=== PATIENT | female | born 1955 | race Caucasian/White ===

== ENCOUNTER 2017-02-06 16:22 | Outpatient (CLI) | payer OTHER ==
[2017-02-06 15:00] LABS: EOSINOPHILS # (AUTO) 0.1 10^3/uL (0.0-0.7); EOSINOPHILS % (AUTO) 2.3 %; HCT - HEMATOCRIT 43.3 % (37.0-47.0); HGB - HEMOGLOBIN 14.7 g/dL (12.0-16.0); LYMPHOCYTES % (AUTO) 43.3 %; MEAN CORPUSCULAR HGB CONC 33.9 g/dL (32.0-36.0); MEAN CORPUSCULAR VOLUME 91.5 fL (81.0-99.0); MEAN PLATELET VOLUME 8.7 fL (7.9-10.8); MONOCYTES # (AUTO) 0.4 10^3/uL (0.0-1.0); MONOCYTES % (AUTO) 8.4 %; NEUTROPHILS # (AUTO) 2.1 10^3/uL (1.5-6.6); NUCLEATED RED BLOOD CELLS AUTO 0.1 /100WBC; RED BLOOD COUNT 4.74 10^6/uL (4.20-5.40); UNCORRECTED WHITE BLOOD COUNT 4.7 x10^3/uL; WHITE BLOOD COUNT 4.7 x10^3/uL (4.8-10.8)
[2017-02-06 15:08] LABS: ALBUMIN/GLOBULIN RATIO 1.4 (1.0-2.2); BILIRUBIN,TOTAL 0.4 mg/dL (0.2-1.0); BUN - BLOOD UREA NITROGEN 20 mg/dL (6-20); CALCIUM 9.1 mg/dL (8.5-10.3); CARBON DIOXIDE - CO2 27 mmol/L (21-32); CHLORIDE 101 mmol/L (101-111); CHOL/HDL RATIO 3.3 (<4.4); CHOLESTEROL 238 mg/dL; CREATININE 0.8 mg/dL (0.4-1.0); GFR - MDRD 73 (>89); GLUCOSE 95 mg/dL (70-100); HDL CHOLESTEROL 72 mg/dL; LDL/HDL RATIO 2.1 (<4.4); POTASSIUM 3.9 mmol/L (3.5-5.0); SODIUM 135 mmol/L (135-145); TOTAL PROTEIN 7.4 g/dL (6.7-8.2); TRIGLYCERIDES 82 mg/dL; VLDL CHOLESTEROL 16 mg/dL
== END 2017-02-06 16:23 | disposition home or self-care (01) ==
LOC: LAB.R 16:22
PROVIDERS: ATTEND Nurse Practitioner Primary Care
DX: E55.9 Vitamin D deficiency, unspecified (principal); N30.10 Interstitial cystitis (chronic) without hematuria; M81.0 Age-related osteoporosis without current pathological fracture; K21.9 Gastro-esophageal reflux disease without esophagitis; Z79.899 Other long term (current) drug therapy; E78.5 Hyperlipidemia, unspecified
CPT/HCPCS: 80053; 80061; 82306; 85025

== ENCOUNTER 2017-02-11 14:20 | Outpatient (CLI) | payer OTHER | END 2017-02-11 14:21 | disposition home or self-care (01) | LOC: SC 14:20 | PROVIDERS: ATTEND Internal Medicine Pulmonary Disease | DX: G47.30 Sleep apnea, unspecified (principal); G47.10 Hypersomnia, unspecified; R06.83 Snoring; E66.9 Obesity, unspecified; Z68.28 Body mass index [BMI] 28.0-28.9, adult | CPT/HCPCS: 99203; 99212 ==

== ENCOUNTER 2017-03-05 10:07 | Outpatient (CLI) | payer OTHER ==
--- NOTE | 2017-03-07 16:31 | Mammography Report ---
DATE OF SERVICE: 03/05/2017 DIGITAL SCREENING MAMMOGRAM: 03/05/2017. CLINICAL INDICATION: A 61-year-old with family history of breast cancer for screening. COMPARISON: 06/2014, 04/2012, 04/2011, 03/2010. TECHNIQUE: Routine CC and MLO projections were obtained of the breasts. FINDING: The breasts again demonstrate heterogeneously dense fibroglandular parenchyma bilaterally. Coarse and punctate, typically benign calcifications are present. No suspicious masses, clustered microcalcifications, or regions of architectural distortion are identified. IMPRESSION: Benign findings. RECOMMENDATIONS: Routine annual screening unless otherwise clinically indicated. BIRADS category 2 benign findings. STANDARD QUALIFYING STATEMENTS 1. This examination was reviewed with the aid of Computed-Aided Detection (CAD). 2. A negative or benign imaging report should not delay biopsy if clinically suspicious findings are present. Consider surgical consultation if warranted. More than 5% of cancers are not identified by imaging. 3. Dense breasts may obscure an underlying neoplasm. TD: 03/06/2017 18:51
== END 2017-03-05 10:08 | disposition home or self-care (01) ==
LOC: DI 10:07
PROVIDERS: ATTEND Nurse Practitioner Primary Care
DX: Z12.31 Encounter for screening mammogram for malignant neoplasm of breast (principal); Z80.3 Family history of malignant neoplasm of breast
CPT/HCPCS: 77067

== ENCOUNTER 2017-03-13 18:06 | Outpatient (CLI) | payer OTHER ==
--- NOTE | 2017-03-15 08:53 | XRAY Report ---
DATE OF SERVICE: 03/13/2017 BILATERAL HIPS: 03/13/2017 COMPARISON STUDY: Sacrum and coccyx 03/13/2017. INDICATION: Mostly right hip pain after fall. TECHNIQUE: One frog leg view of each hip. Frontal pelvis and hips. FINDINGS: Normal alignment. No evidence of acute fracture. There is a minimal enthesophyte of the right greater trochanter at the insertion of the gluteal tendons. IMPRESSION: Right calcific gluteal tendinopathy. Otherwise, negative hips. TD: 03/14/2017 18:33 TAVO
--- NOTE | 2017-03-15 08:53 | XRAY Report ---
DATE OF SERVICE: 03/13/2017 CERVICAL SPINE: 03/13/2017 COMPARISON: Cervical spine 04/23/2008. INDICATION: Fall on 02/22/2017 down the stairs. TECHNIQUE: Four views of the cervical spine. FINDINGS: There is moderate disk space narrowing at C5-C6 and C6-C7 with small to moderate anterior osteophytes at those levels. Alignment is normal. There is no evidence of acute fracture. Prevertebral soft tissues appear unremarkable. The lateral masses are symmetric. IMPRESSION: Moderate lower cervical spondylosis slightly progressed from the prior exam. TD: 03/14/2017 18:34 MTDD
--- NOTE | 2017-03-15 08:53 | XRAY Report ---
DATE OF SERVICE: 03/13/2017 SACRUM AND COCCYX RADIOGRAPHS: 03/13/2017 COMPARISON STUDY: Lumbar spine 01/10/2015. INDICATION: Buttock pain. TECHNIQUE: Three views of the sacrum. FINDINGS: Normal alignment. No evidence of acute fracture. No erosive findings. Soft tissues appear unremarkable. IMPRESSION: Negative sacrum and coccyx. TD: 03/14/2017 18:31 [facility]
== END 2017-03-13 18:07 | disposition home or self-care (01) ==
LOC: DI 18:06
PROVIDERS: ATTEND Nurse Practitioner Primary Care
DX: M43.02 Spondylolysis, cervical region (principal); M67.853 Other specified disorders of tendon, right hip
CPT/HCPCS: 72040; 72220; 73521

== ENCOUNTER 2017-04-18 16:51 | Outpatient (CLI) | payer OTHER ==
--- NOTE | 2017-04-19 12:00 | MRI Report ---
EXAM: MRI CERVICAL SPINE WITHOUT CONTRAST EXAM DATE: 04/18/2017 06:17 PM. CLINICAL HISTORY: Chronic neck pain with bilateral arm pain, numbness and tingling. COMPARISONS: Cervical spine 3 views 03/13/2017. TECHNIQUE: Multiplanar, multisequence T1-weighted and fluid-sensitive sequences of the cervical spine without contrast. Other: None. FINDINGS: Neurologic Structures: The visualized posterior fossa structures are unremarkable. No signal abnormal ity in the visualized spinal cord. Alignment: No scoliosis or spondylolisthesis. Bone Marrow: No gross fractures or bone lesions. No marrow edema. Interspace Levels/Facets: C1-C2: Unremarkable. C2-C3: Severe right facet hypertrophic arthropathy. Mild right foraminal stenosis from facet degenera tive hypertrophy. C3-C4: Right facet joint ankylosis. Hypoplasia disk interspace. Negative for spinal canal stenosis or foraminal stenosis. C4-C5: Mild disk degeneration. Moderate facet joint arthrosis. The neural foramina are negative for s tenosis. Posterior 2 mm disk protrusion/osteophyte complex. C5-C6: Mild ligamentum flavum thickening. Severe disk degeneration. Mild left foraminal stenosis from Luschka joint hypertrophic spurring. Moderate to severe right foraminal stenosis from Luschka joint hypertrophic spurring. C6-C7: Severe disk degeneration. Mild left foraminal stenosis from Luschka joint hypertrophic spurrin g. C7-T1: Mild left facet joint arthrosis. The intervertebral foramina are negative for stenosis. Musculature: Normal. No edema or fatty atrophy. Other: The paravertebral and prevertebral soft tissues are normal. IMPRESSION: 1. The spinal cord from the cervical medullary junction to T2 is negative for signal abnormality. 2. Mild central spinal canal stenosis C5-C6 interspace from posterior 2 mm disk protrusion/osteophyte complex and ligamentum flavum thickening. 3. Moderate to severe right and mild left C5-C6 foraminal stenosis from Luschka joint hypertrophic sp urring. [facility] Referring Provider Line: [phone] SITE ID: [id number]
== END 2017-04-18 16:52 | disposition home or self-care (01) ==
LOC: DI 16:51
PROVIDERS: ATTEND Nurse Practitioner Primary Care
DX: M47.892 Other spondylosis, cervical region (principal); M50.221 Other cervical disc displacement at C4-C5 level; M50.321 Other cervical disc degeneration at C4-C5 level
CPT/HCPCS: 72141

== ENCOUNTER 2017-05-03 11:39 | Outpatient (CLI) | payer OTHER ==
--- NOTE | 2017-05-03 15:52 | XRAY Report ---
REVISED: THIS REPORT WAS ORIGINALLY SIGNED ON 05/03/2017 @ 1602. NO CHANGES WERE MADE TO THE REPORT. THE ORIGINAL [facility] REQUISITION WAS REPRINTED ON . FOUR VIEW RIGHT KNEE: 05/03/2017 CLINICAL INDICATION: Pain. FINDINGS: AP, lateral, bilateral oblique views of the right knee demonstrate no evidence of fracture or dislocation. No effusion is present. No foreign body is seen in the soft tissues. IMPRESSION: NORMAL RIGHT KNEE. TD: 05/03/2017 15:49 MTDD
--- NOTE | 2017-05-03 15:52 | XRAY Report ---
THREE VIEW RIGHT ANKLE: 05/03/2017 CLINICAL INDICATION: Pain. FINDINGS: AP, lateral, oblique views of the right ankle demonstrate no evidence of fracture or dislocation. No effusion is present. No foreign body is seen. IMPRESSION: NORMAL RIGHT ANKLE. TD: 05/03/2017 15:50
== END 2017-05-03 11:40 | disposition home or self-care (01) ==
LOC: DI 11:39
PROVIDERS: ATTEND Nurse Practitioner Primary Care
DX: M25.561 Pain in right knee (principal); M25.571 Pain in right ankle and joints of right foot

== ENCOUNTER 2017-05-06 12:11 | Outpatient (CLI) | payer OTHER ==
--- NOTE | 2017-05-08 15:14 | XRAY Report ---
REVISED: THIS REPORT WAS ORIGINALLY SIGNED ON 05/03/2017 @ 1602. NO CHANGES WERE MADE TO THE REPORT. THE ORIGINAL [facility] REQUISITION WAS REPRINTED ON . FOUR VIEW RIGHT KNEE: 05/03/2017 CLINICAL INDICATION: Pain. FINDINGS: AP, lateral, bilateral oblique views of the right knee demonstrate no evidence of fracture or dislocation. No effusion is present. No foreign body is seen in the soft tissues. IMPRESSION: NORMAL RIGHT KNEE. TD: 05/03/2017 15:49 Wealth Management Manager: Reading Radiologist: Jose Shay MD Releasing Radiologist: Jose Shay MD Released Date Time: 05/06/17 1240 cc: ROSARIO Vivar ADDENDUM ADDENDUM TO FOUR VIEW RIGHT KNEE OF 05/03/2017 ADDENDUM: The patient returned for standing views on 05/06/2017. Again, the joint spaces are preserved. No effusion is evident. There has been no significant interval change. END OF ADDENDUM Addendum Wealth Management Manager: PAIGE Addendum Reading Radiologist: Jose Shay MD Addendum Releasing Radiologist: Jose Shay MD Addendum Released Date Time: 05/07/17 1143 MTDD
--- NOTE | 2017-05-08 15:15 | XRAY Report ---
REVISED: THIS REPORT WAS ORIGINALLY SIGNED ON 05/03/2017 @ 1602. NO CHANGES WERE MADE TO THE REPORT. THE ORIGINAL [facility] REQUISITION WAS REPRINTED ON . FOUR VIEW RIGHT KNEE: 05/03/2017 CLINICAL INDICATION: Pain. FINDINGS: AP, lateral, bilateral oblique views of the right knee demonstrate no evidence of fracture or dislocation. No effusion is present. No foreign body is seen in the soft tissues. IMPRESSION: NORMAL RIGHT KNEE. TD: 05/03/2017 15:49 Associate Financial Advisor: Reading Radiologist: Jose Shay MD Releasing Radiologist: Jose Shay MD Released Date Time: 05/06/17 1240 cc: ROSARIO Vivar ADDENDUM ADDENDUM TO FOUR VIEW RIGHT KNEE OF 05/03/2017 ADDENDUM: The patient returned for standing views on 05/06/2017. Again, the joint spaces are preserved. No effusion is evident. There has been no significant interval change. END OF ADDENDUM Addendum Associate Financial Advisor: PAIGE Addendum Reading Radiologist: Jose Shay MD Addendum Releasing Radiologist: Jose Shay MD Addendum Released Date Time: 05/07/17 1143 MTDD
== END 2017-05-06 12:12 | disposition home or self-care (01) ==
LOC: DI 12:11
PROVIDERS: ATTEND Nurse Practitioner Primary Care
DX: M25.561 Pain in right knee (principal)

== ENCOUNTER 2017-05-30 12:26 | Outpatient (CLI) | payer OTHER ==
--- NOTE | 2017-05-30 16:19 | MRI Report ---
EXAM: RIGHT ANKLE/HINDFOOT MRI WITHOUT CONTRAST EXAM DATE: 05/30/2017 01:38 PM. CLINICAL HISTORY: Right ankle pain for 4 months. Anterior and lateral ankle. Fell in October 2016. COMPARISON: None. TECHNIQUE: Multiplanar, multisequence T1-weighted and fluid-sensitive sequences of the ankle/hindfoot without contrast. Other: None. FINDINGS: Bones: There is a small cyst in the superomedial talar dome consistent with an osteochondral injury. There are no visible fractures. Articular Cartilage: There is focal thinning of the hyaline cartilage overlying the superomedial hattie r dome. Ligaments: The tibiofibular ligaments are intact. There is an old partial-thickness tear of the anter ior talofibular and calcaneofibular ligaments. There is thickening and decreased T1 and T2 signal in the superficial component of the deltoid ligament consistent with a prior partial-thickness tear. The re is a full-thickness tear of the spring ligament, with synovial fluid and joint capsule herniating inferiorly, between anterior and posterior intact components, coronal image 14. Anterior Tendons: The tibialis anterior, extensor hallucis longus, and extensor digitorum longus tend ons are unremarkable. Medial Tendons: The tibialis posterior, flexor digitorum longus, and flexor hallucis longus tendons a re unremarkable. Lateral Tendons: The peroneus brevis and longus are unremarkable. Achilles Tendon: Partial-thickness tear of the right side of the Achilles tendon. The tendon does not appear significantly thickened to suggest tendinosis. Musculature: No edema or fatty atrophy. Other: No effusions. The contents of the sinus tarsi and tarsal tunnel are unremarkable. No plantar f asciitis. The subcutaneous tissues are unremarkable. IMPRESSION: 1. Partial-thickness tear of the anterior talofibular and calcaneofibular ligaments with an osteochon dral injury of the superomedial talar dome. 2. Partial-thickness tear of the lateral aspect of the Achilles tendon. 3. Full-thickness tear of the spring ligament, and old partial-thickness tear of the superficial bund le of the medial collateral ligament. [facility] MUSCULOSKELETAL RADIOLOGY SECTION Referring Provider Line: [phone] SITE ID: [id number]
== END 2017-05-30 12:27 | disposition home or self-care (01) ==
LOC: DI 12:26
PROVIDERS: ATTEND Student in an Organized Health Care Education/Training Program
DX: S93.491A Sprain of other ligament of right ankle, initial encounter (principal); S93.411A Sprain of calcaneofibular ligament of right ankle, initial encounter; S86.011A Strain of right Achilles tendon, initial encounter; M89.8X7 Other specified disorders of bone, ankle and foot; S93.691A Other sprain of right foot, initial encounter

== ENCOUNTER 2017-06-18 09:35 | Outpatient (CLI) | payer OTHER ==
--- NOTE | 2017-06-18 11:46 | MRI Report ---
EXAM: RIGHT KNEE MRI WITHOUT CONTRAST EXAM DATE: 06/18/2017 10:14 AM. CLINICAL HISTORY: Right knee joint pain after fall down stairs in October 2016. COMPARISON: None. TECHNIQUE: Multiplanar, multisequence T1-weighted and fluid-sensitive sequences of the knee without c ontrast. Other: None. FINDINGS: Bones: No fractures. There is reactive periarticular marrow edema in the patella. Articular Cartilage: The patellofemoral and lateral compartment articular cartilage is intact. There is moderate thinning and surface irregularity of the medial compartment articular cartilage. Medial Meniscus: The medial meniscus is intact. Lateral Meniscus: The lateral meniscus is intact. Cruciate Ligaments: The anterior and posterior cruciate ligaments are intact. Collateral Ligaments: The medial collateral and lateral collateral ligamentous structures are intact. Tendons: The quadriceps, patellar, semimembranosus, and popliteus tendons are unremarkable. Musculature: No edema or fatty atrophy. Other: No effusion. No popliteal cyst. No loose bodies. The medial and lateral retinacula are intact . Prepatellar subcutaneous edema is present. IMPRESSION: 1. 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 [facility] MUSCULOSKELETAL RADIOLOGY SECTION Referring Provider Line: [phone] SITE ID: [id number]
--- NOTE | 2017-06-18 14:45 | MRI Report ---
EXAM: MRI LUMBAR SPINE WITHOUT CONTRAST EXAM DATE: 06/18/2017 10:38 AM. CLINICAL HISTORY: Right lower extremity radiculopathy. Previous fall in October 2016. COMPARISON: Lumbar spine radiography from 01/10/2015. TECHNIQUE: Multiplanar, multisequence T1-weighted and fluid-sensitive sequences of the lumbar spine f rom T12 to S1 without contrast. Other: None. FINDINGS: Spinal Cord: The conus terminates at L1-L2. The conus medullaris and cauda equina are unremarkable. Alignment: Mild levoconvex scoliosis. Bone Marrow: Five ioi-yiu-kidsecd lumbar vertebral bodies are assumed. Minimal marrow edema at the le ft L5 superior and inferior facets and pars interarticularis. Minimal marrow edema at the left S1 sup erior facet. Mild marrow edema at the right L5 pedicle. Small subcortical cyst at the right L5 superi or facet. No acute fractures. No bone lesions. Small Schmorl's node at the L2 superior endplate. Disk Levels/Facets: L5-S1: Minimal diffuse disk bulge. Moderate left and mild right facet arthropathy. No stenoses. L4-L5: Tiny right foraminal disk protrusion with annular fissure. Small left foraminal disk protrusio n. Moderate to severe ligamentum flavum thickening. Mild facet arthropathy. No canal stenosis. Mild l eft foraminal stenosis. L3-L4: Small left and right foraminal disk protrusions. Minimal foraminal narrowing. L2-L3: Unremarkable. L1-L2: Degenerative endplate changes. Mild disk space narrowing. Tiny posterior right paracentral dis k protrusion/osteophyte complex. No foraminal stenoses. T12-L1: Unremarkable. Musculature: Normal. No edema or fatty atrophy. Other: There is small intrasacral meningeal or perineural cyst at the S2-S3 level. IMPRESSION: 1. Mild multilevel degenerative disk changes. 2. Minimal diffuse disk bulge and moderate bilateral facet arthropathy at L5-S1. 3. Marrow edema at the left L5 superior and inferior facets, left L5 pars interarticularis,, right L5 pedicle, and left S1 superior facet which is probably degenerative and reactive. Small subcortical c yst at the right L5 superior facet which is probably degenerative. 4. Tiny right foraminal and small left foraminal disk protrusions at L4-L5. Mild left foraminal steno sis. 5. Small foraminal disk protrusions and minimal foraminal narrowing at L3-L4. 6. Mild levoconvex scoliosis. Comment: The following findings are so common in adults without low back pain that while we report th eir presence, they must be interpreted with caution and in the context of the clinical situation. (Re gina Bearden et al, Spine 2001) Prevalence of findings in patients without low back pain: Disk degeneration (any evidence): 92% Disk desiccation/T2 signal loss: 83% Disk height loss: 56% Disk bulge: 64% Disk protrusion: 32% Annular tear/high intensity zone: 38% [facility] Referring Provider Line: [phone] SITE ID: [id number]
== END 2017-06-18 09:36 | disposition home or self-care (01) ==
LOC: DI 09:35
PROVIDERS: ATTEND Student in an Organized Health Care Education/Training Program
DX: M51.26 Other intervertebral disc displacement, lumbar region (principal); M94.261 Chondromalacia, right knee
CPT/HCPCS: 72148

== ENCOUNTER 2017-08-01 19:42 | Outpatient (CLI) | payer OTHER | END 2017-08-01 19:43 | disposition home or self-care (01) | LOC: SC 19:42 | PROVIDERS: ATTEND Internal Medicine Pulmonary Disease | DX: G47.33 Obstructive sleep apnea (adult) (pediatric) (principal) | CPT/HCPCS: 95810 ==

== ENCOUNTER 2017-08-27 10:49 | Outpatient (CLI) | END 2017-08-27 10:50 | disposition home or self-care (01) ==

== ENCOUNTER 2017-10-31 20:40 | Outpatient (CLI) | payer OTHER | END 2017-10-31 20:41 | disposition home or self-care (01) | LOC: SC 20:40 | PROVIDERS: ATTEND Internal Medicine Pulmonary Disease | DX: G47.33 Obstructive sleep apnea (adult) (pediatric) (principal) | CPT/HCPCS: 95811 ==

== ENCOUNTER 2017-12-16 10:31 | Outpatient (CLI) | payer OTHER | END 2017-12-16 10:32 | disposition home or self-care (01) | LOC: SC 10:31 | PROVIDERS: ATTEND Internal Medicine Pulmonary Disease | DX: G47.33 Obstructive sleep apnea (adult) (pediatric) (principal) | CPT/HCPCS: 99212; 99213 ==

== ENCOUNTER 2018-01-20 10:15 | Outpatient (CLI) | payer OTHER | END 2018-01-20 10:16 | disposition home or self-care (01) | LOC: SC 10:15 | PROVIDERS: ATTEND Internal Medicine Pulmonary Disease | DX: G47.33 Obstructive sleep apnea (adult) (pediatric) (principal) | CPT/HCPCS: 99212; 99213 ==

== ENCOUNTER 2018-02-20 08:00 | Outpatient (CLI) | payer OTHER ==
[2018-02-20 13:49] LABS: BASOPHILS % (AUTO) 0.7 %; EOSINOPHILS # (AUTO) 0.1 10^3/uL (0.0-0.7); EOSINOPHILS % (AUTO) 3.3 %; HGB - HEMOGLOBIN 13.7 g/dL (12.0-16.0); LYMPHOCYTES # (AUTO) 1.5 10^3/uL (1.5-3.5); LYMPHOCYTES % (AUTO) 34.6 %; MEAN CORPUSCULAR HEMOGLOBIN 31.1 pg (27.0-31.0); MEAN CORPUSCULAR VOLUME 91.6 fL (81.0-99.0); MEAN PLATELET VOLUME 8.8 fL (7.9-10.8); MONOCYTES # (AUTO) 0.4 10^3/uL (0.0-1.0); MONOCYTES % (AUTO) 10.4 %; NEUTROPHILS # (AUTO) 2.2 10^3/uL (1.5-6.6); PLT - PLATELET COUNT 226 10^3/uL (130-450); RED CELL DISTRIBUTION WIDTH 13.4 % (12.0-15.0); WHITE BLOOD COUNT 4.3 x10^3/uL (4.8-10.8)
[2018-02-20 14:03] LABS: ALBUMIN 4.1 g/dL (3.2-5.5); ALBUMIN/GLOBULIN RATIO 1.2 (1.0-2.2); ALKALINE PHOSPHATASE 77 IU/L (42-121); ALT ALANINE AMINOTRANSFERASE 20 IU/L (10-60); AST ASPARTATE AMINOTRANSFERASE 22 IU/L (10-42); BILIRUBIN,TOTAL 0.7 mg/dL (0.2-1.0); BUN - BLOOD UREA NITROGEN 18 mg/dL (6-20); CARBON DIOXIDE - CO2 27 mmol/L (21-32); CHLORIDE 102 mmol/L (101-111); CHOL/HDL RATIO 2.9 (<4.4); CHOLESTEROL 209 mg/dL; CREATININE 0.7 mg/dL (0.4-1.0); GFR - MDRD 85 (>89); GLUCOSE 95 mg/dL (70-100); HDL CHOLESTEROL 72 mg/dL; LDL CHOLESTEROL,CALCULATED 123 mg/dL; LDL/HDL RATIO 1.7 (<4.4); SODIUM 135 mmol/L (135-145); TOTAL PROTEIN 7.4 g/dL (6.7-8.2); VLDL CHOLESTEROL 14 mg/dL
== END 2018-02-20 23:59 ==
LOC: LAB.R 08:00
PROVIDERS: ATTEND Nurse Practitioner Primary Care
DX: Z00.00 Encounter for general adult medical examination without abnormal findings (principal); E55.9 Vitamin D deficiency, unspecified; Z79.899 Other long term (current) drug therapy; Z13.29 Encounter for screening for other suspected endocrine disorder; E78.5 Hyperlipidemia, unspecified
CPT/HCPCS: 80053; 80061; 82306; 83721; 84443; 85025

== ENCOUNTER 2018-03-19 09:57 | Outpatient (CLI) | payer OTHER ==
--- NOTE | 2018-03-20 08:49 | Mammography Report ---
Reason: MAMMOGRAM SCREENING Procedure Date: 03/19/2018 Accession Number: [id number] / [id number] Procedure: CHARLY - Screening Mammo w/Cas CPT Code: FULL RESULT: EXAM: Screening Mammo w/Cas DATE: 03/19/2018 10:38 AM CLINICAL HISTORY: Screening encounter. History of early menses. Family history of breast cancer in the mother at the age of 70, a cousin in the 40s and an aunt in her 60s. TECHNIQUE: Bilateral CC and MLO views were obtained. COMPARISON: 03/05/2017 through 04/23/2011. FINDINGS: The breasts demonstrate heterogeneously dense fibroglandular parenchyma bilaterally. Coarse typically benign right breast calcifications are again seen. Typically benign left breast intramammary lymph node is noted. No suspicious masses, clustered microcalcifications, or regions of architectural distortion are identified. IMPRESSION: Benign findings RECOMMENDATION: Routine annual screening unless otherwise clinically indicated. BIRADS CATEGORY 2: Benign findings STANDARD QUALIFYING STATEMENTS: 1. This examination was not reviewed with the aid of Computer-Aided Detection (CAD). 2. A negative or benign imaging report should not preclude biopsy if clinically suspicious findings are present. 3. Dense breasts may obscure an underlying neoplasm. 4. This examination was reviewed with the aid of 3D breast imaging (tomosynthesis).
== END 2018-03-19 09:58 | disposition home or self-care (01) ==
LOC: DI 09:57
PROVIDERS: ATTEND Nurse Practitioner Primary Care
DX: Z12.31 Encounter for screening mammogram for malignant neoplasm of breast (principal); Z80.3 Family history of malignant neoplasm of breast
CPT/HCPCS: 77063; 77067

== ENCOUNTER 2018-08-21 17:34 | Outpatient (CLI) | payer OTHER ==
--- NOTE | 2018-08-22 10:00 | XRAY Report ---
Reason: NECK PAIN Procedure Date: 08/21/2018 Accession Number: [id number] / [id number] Procedure: XR - Cervical Spine Complete CPT Code: FULL RESULT: EXAM: CERVICAL SPINE RADIOGRAPHY EXAM DATE: 08/21/2018 06:10 PM. CLINICAL HISTORY: NECK PAIN. COMPARISONS: CERVICAL SPINE 2 VIEW 03/13/2017 6:15 PM. TECHNIQUE: 5 views. FINDINGS: Alignment: Normal. No spondylolisthesis or scoliosis. Bones: The cervical vertebral bodies and posterior elements are well-visualized from the skull base through C7-T1. No fractures or bone lesions. Disks: Mild disk height narrowing at C5-C6 and minimal narrowing at C6-C7. No significant subluxation. Facets: No degenerative disease. Neural Foramina: Mild right C5-C6 bony stenosis. Otherwise no evidence of bony foraminal stenosis. Soft Tissues: Normal. No prevertebral soft tissue swelling. The visualized lung apices are clear. IMPRESSION: 1. Mild multilevel degenerative disease as discussed above. 2. Mild right C5-C6 foraminal stenosis. 3. Otherwise negative examination. No acute finding. [facility]
== END 2018-08-21 17:35 | disposition home or self-care (01) ==
LOC: DI 17:34
PROVIDERS: ATTEND Nurse Practitioner
DX: M50.322 Other cervical disc degeneration at C5-C6 level (principal); M48.02 Spinal stenosis, cervical region
CPT/HCPCS: 72050

== ENCOUNTER 2019-09-02 10:26 | Outpatient (CLI) | payer OTHER ==
--- NOTE | 2019-09-02 13:40 | MRI Report ---
PROCEDURE: Cervical Spine W/O INDICATIONS: DEGENERATIVE JOINT DISEASE TECHNIQUE: Noncontrast sagittal T1 spin echo and T2 fast spin echo, sagittal STIR, foraminal oblique sagittal T2 fast spin echo, and axial gradient echo or T2 fast spin echo through the cervical spine. COMPARISON: MRI examination dated 04.18.17 FINDINGS: Image quality: Excellent. Alignment and Curvature: There is normal bony alignment. Bone Marrow: Marrow demonstrates normal overall signal. Spinal Cord: Visualized spinal cord has normal size and signal. No cerebellar tonsillar herniation. Paraspinous Soft Tissues: No paravertebral masses. Prevertebral soft tissues are normal in thicknes s. C2-C3: Moderate disc desiccation. Mild facet and uncovertebral hypertrophy bilaterally. Mild canal s tenosis. Mild right greater than left foraminal stenosis. No change. C3-C4: Moderate disc height loss and desiccation. Mild facet and uncovertebral hypertrophy. Mild ca nal stenosis. Mild bilateral foraminal stenosis. C4-C5: Mild disc height loss. Moderate disc desiccation. Mild diffuse disc bulge with superimposed c entral protrusion. Mild facet hypertrophy and uncovertebral hypertrophy bilaterally. There is increas ed, moderate canal stenosis. There is increased, moderate bilateral foraminal stenosis. C5-C6: Mild disc height loss. Moderate disc desiccation. Mild diffuse disc bulge. Mild facet and unc overtebral hypertrophy bilaterally. Increased, moderate to severe canal stenosis. Minimal cord evie ening. Increased, severe right foraminal stenosis. No change in mild left foraminal stenosis. Right C 6 nerve root compression, new since the prior examination. C6-C7: Mild disc height loss. Moderate disc desiccation. Mild diffuse disc bulge. Mild facet and unc overtebral hypertrophy bilaterally. Mild canal stenosis. Mild bilateral foraminal stenosis. No change . C7-T1: Moderate disc desiccation. Mild facet and uncovertebral hypertrophy bilaterally. No significa nt canal, nor foraminal stenosis. IMPRESSION: 1. Multilevel degenerative disc and facet disease, as well as uncovertebral hypertrophy. 2. Multilevel canal stenoses, worst at C5-C6, where there is new minimal cord flattening. 3. Multilevel foraminal stenoses, worst at C5-C6, where there is associated intraforaminal nerve root compression. Recommend correlation with clinical symptoms to ascertain relevance of this finding. Reviewed by: Lizette Villa MD on 09/02/2019 1:38 PM PDT Approved by: Lizette Villa MD on 09/02/2019 1:38 PM PDT Station ID: [id number]
== END 2019-09-02 10:27 | disposition home or self-care (01) ==
LOC: DI 10:26
PROVIDERS: ATTEND Nurse Practitioner
DX: M50.31 Other cervical disc degeneration, high cervical region (principal); M47.812 Spondylosis without myelopathy or radiculopathy, cervical region; M47.813 Spondylosis without myelopathy or radiculopathy, cervicothoracic region; M48.02 Spinal stenosis, cervical region
CPT/HCPCS: 72141

== ENCOUNTER 2019-09-29 13:58 | Outpatient (CLI) | payer OTHER ==
--- NOTE | 2019-09-30 09:13 | Mammography Report ---
BILATERAL DIGITAL SCREENING MAMMOGRAM 3D/2D: 09/29/2019 CLINICAL: Routine screening. Comparison is made to exams dated: 03/19/2018 mammogram, 03/05/2017 mammogram, and 06/16/2014 mammogram - [facility]. The tissue of both breasts is heterogeneously dense. This may lower the sensitivity of mammography. No significant masses, calcifications, or other findings are seen in either breast. There has been no significant interval change. IMPRESSION: NEGATIVE There is no mammographic evidence of malignancy. A 1 year screening mammogram is recommended. This exam was interpreted at Station ID: [id number]. NOTE: For mammograms, a report in lay terms will be sent to the patient. Approximately 15% of breast malignancies will not be visualized mammographically. In the management of a palpable breast mass, a negative mammogram must not discourage biopsy of a clinically suspicious lesion. Electronically Signed By: Debbie tejeda/nba:09/29/2019 18:13:46 ACR BI-RADS Category 1: Negative 3341F PARENCHYMAL PATTERN: (D) - The breast(s) demonstrate(s) heterogeneously dense fibroglandular abelino gibbs. BI-RADS CATEGORY: (1) - 1 RECOMMENDATION: (ANNUAL) - Recommend routine annual screening mammography. [id number] 1 year screening LATERALITY: (B)
== END 2019-09-29 13:59 | disposition home or self-care (01) ==
LOC: DI 13:58
DX: Z12.31 Encounter for screening mammogram for malignant neoplasm of breast (principal)
CPT/HCPCS: 77063; 77067